=== PATIENT | male | born 1975 | race African-American/Black ===

== ENCOUNTER 2017-10-30 13:08 | Emergency (ER) | payer MEDICAID ==
[~2017-10-30] VITALS: Ht 180.3 cm; Wt 100.0 kg
[2017-10-30 14:33] LABS: BASOPHILS % 0.5 % (0.0-2.0); HEMATOCRIT. 40.8 % (42.0-52.0); HEMOGLOBIN. 14.1 g/dL (14.0-18.0); LYMPHOCYTES % 19.2 % (20.0-50.0); MEAN CORPUSCULAR VOLUME 87.1 fL (80.0-94.0); MEAN PLATELET VOLUME 7.5 fl (7.4-10.4); NEUTROPHILS % 71.3 % (40.0-76.0); PLATELET 242 x1000/uL (130-400); RED BLOOD CELL COUNT 4.68 mill/uL (4.7-6.1); RED CELL DISTRIBUTION WIDTH 12.8 % (11.6-14.6)
[2017-10-30 14:37] LABS: CHLORIDE 106 mEq/L (98-107)
[2017-10-30 15:00] VITALS: BP 134/82
== END 2017-10-30 15:42 | disposition home or self-care (01) ==
LOC: ER 15:19
DX: K59.00 Constipation, unspecified (principal); R11.0 Nausea
CPT/HCPCS: 36415; 80053; 85025; 99284

== ENCOUNTER 2018-01-10 12:11 | Emergency (ER) | payer MEDICAID ==
[~2018-01-10] VITALS: Ht 182.9 cm; Wt 91.0 kg
[2018-01-10 12:21] VITALS: BP 120/70
== END 2018-01-10 16:03 | disposition left against medical advice (07) ==
LOC: ER 12:11
DX: Z53.21 Procedure and treatment not carried out due to patient leaving prior to being seen by health care provider (principal)

== ENCOUNTER 2020-04-08 21:41 | Emergency (ER) | payer MEDICAID ==
[~2020-04-08] VITALS: Ht 180.3 cm; Wt 77.0 kg
[2020-04-09 01:16] VITALS: BP 131/74
== END 2020-04-09 01:00 | disposition home or self-care (01) ==
LOC: ER 21:41
DX: S00.03XA Contusion of scalp, initial encounter (principal); H57.13 Ocular pain, bilateral; H57.89 Other specified disorders of eye and adnexa; Y00.XXXA Assault by blunt object, initial encounter; Y93.89 Activity, other specified; Y92.89 Other specified places as the place of occurrence of the external cause; Y99.8 Other external cause status
CPT/HCPCS: 99284